=== PATIENT | female | born 1980 | race Native Hawaiian/Other Pacific Islander ===

== ENCOUNTER 2020-05-04 11:11 | Inpatient (IN) | payer OTHER ==
[2020-05-04] MEDS ORDERED: MINERAL OIL 30 ML ORAL LIQD PO PRN (19:01)
[2020-05-04] MEDS ORDERED: fentaNYL 100 MCG/2 ML INJ IV PRN (19:01)
[2020-05-04] MEDS ORDERED: ePHEDrine SULFATE 50 MG/1 ML INJ IV PRN (19:01)
[2020-05-04] MEDS ORDERED: TERBUTALINE 1 MG/1 ML INJ SUB-Q PRN (19:01)
[2020-05-04] MEDS ORDERED: AMPICILLIN/NS 2 GM/100 ML 2 GM/100 ML BAG IV ONE (19:14)
[2020-05-04] MEDS: LACTATED RINGERS 1,000 ML IV SCH (19:25)
[2020-05-04 19:48] LABS: Basophils # (Auto) 0.1 K/mm3 (0.0-0.1); Basophils % (Auto) 0.4 % (0.0-1.8); Eosinophils % (Auto) 0.2 % (0.0-4.3); Hematocrit 38.1 % (30.3-42.9); Hemoglobin 12.5 gm/dl (10.1-14.3); Lymphocytes # (Auto) 1.6 K/mm3 (1.2-5.4); Lymphocytes % (Auto) 9.3 % (13.4-35.0); Mean Corpuscular HGB Conc 33 % (30-34); Mean Corpuscular Volume 90 fl (79-97); Monocytes % (Auto) 5.9 % (0.0-7.3); Platelet Count 327 K/mm3 (140-440); Red Blood Count 4.26 M/mm3 (3.65-5.03); Red Cell Distribution Width 14.3 % (13.2-15.2)
[2020-05-04] MEDS ORDERED: OXYTOCIN DRIP 30 UNITS/500 ML BAG IV SCH ×2 (20:00→23:30)
[2020-05-04] MEDS ORDERED: LIDOCAINE (2%) 20 MG/1 ML VIAL 20 ML MDV INFILTRATI ONE (20:01)
[2020-05-04 22:53] LABS: Bilirubin,Urine NEG (Negative); Blood,Urine LG (Negative); Color,Urine Yellow (Yellow); Mucus,Urine 1+ /HPF; Urobilinogen,Urine < 2.0 mg/dL (<2.0)
[2020-05-04] MEDS ORDERED: AMPICILLIN/NS 1 GM/50 ML 1 GM/50 ML BAG IV SCH (23:00)
--- NOTE | 2020-05-04 23:45 | Ultrasound Report ---
Limited obstetrical ultrasound INDICATION: Term , amniotic fluid assessment COMPARISON: None FINDINGS: Intrauterine is seen in a cephalic position. cardiac activity was documente d at 157 bpm. Amniotic fluid appears rather limited and TIN is decreased at 3.8 cm. BIOPHYSICAL PROFILE breathing movements: 2/2 movements: 2/2 posture and tone tone: 2/2 Qualitative amniotic fluid volume: 2/2 Total score: 8/8, within normal limits Signer Name: Hussein Wilson MD Signed: 05/04/2020 11:41 PM Workstation Name: [id number]
[2020-05-04] MEDS: BUTORPHANOL 2 MG/1 ML INJ IV PRN (23:46)
[2020-05-05] MEDS ORDERED: AMPICILLIN/NS 2 GM/100 ML 2 GM/100 ML BAG IV SCH (01:30)
[2020-05-05] MEDS: BUTORPHANOL 2 MG/1 ML INJ IV PRN (01:56)
[2020-05-05] MEDS: LACTATED RINGERS 1,000 ML IV SCH (03:39)
--- NOTE | 2020-05-05 04:56 | History and Physical Report ---
History of Present Illness Date of examination: 05/05/20 Date of admission: 05/05/2020 Chief complaint: 39 wks gestation History of present illness: 40yo, G1 @ 39.1 wks, initiated care with [facility] at 15 wks gestation. Her has been complicated by AMA; fibroids and PACs (resolved 01/26/20). She presents to [facility] with reports of irregular painful ctxs for a couple of hours. She reports +FM. Denies VB. Does report "leaking" unsure of when it started. Labs: O+, antibody negative; PAP smear negative; rubella immune; RPR negative urine culture negative; HBsAg negative; HIV negative; GC/Chlamydia negative; MSAFP/Multiple markers negative; 1 hr gtt - 145; 3 hr gtt - 79, 135, 117, 126; GBS positive. Past History Past Medical History: other (Uterine fibroids) Past Surgical History: no surgical history Family/Genetic History: diabetes (Father) Social history: full code. denies: smoking, alcohol abuse, prescription drug abuse, IV drug use - Obstetrical History Expected Date of Delivery: 05/11/20 Actual Gestation: 39 Week(s) 1 Day(s) : 1 Para: 0 Hx # Term Pregnancies: 0 Number of Pregnancies: 0 Spontaneous Abortions: 0 Induced : 0 Number of Living Children: 0 Medications and Allergies Allergies Allergy/AdvReac Type Severity Reaction Status Date / Time No Known Allergies Allergy Verified 05/04/20 11:28 Home Medications Medication Instructions Recorded Confirmed Last Taken Type Vit-Fe Fumar-FA [ 1 tab PO DAILY 05/04/20 05/04/20 05/03/20 History Vitamin] Active Meds: Active Medications Butorphanol Tartrate (Butorphanol 2 Mg/1 Ml Inj) 2 mg IV Q2H PRN PRN Reason: Pain , Severe (7-10) Last Admin: 05/05/20 01:56 Dose: 2 mg Documented by: Ephedrine Sulfate (Ephedrine Sulfate 50 Mg/1 Ml Inj) 10 mg IV Q2M PRN PRN Reason: Hypotension Fentanyl (Fentanyl 100 Mcg/2 Ml Inj) 100 mcg IV Q2H PRN PRN Reason: Pain,Severe (7-10) LABOR PAIN Last Admin: 05/04/20 19:37 Dose: 100 mcg Documented by: Lactated Ringer's (Lactated Ringers) 1,000 mls @ 125 mls/hr IV DIRECT NORBERT Last Admin: 05/05/20 03:39 Dose: 125 mls/hr Documented by: Oxytocin/Sodium Chloride (Pitocin/Ns 30 Unit/500ml) 30 units in 500 mls @ 40 mls/hr IV TITR NORBERT; Protocol Ampicillin Sodium (Ampicillin/Ns 2 Gm/100 Ml) 2 gm in 100 mls @ 100 mls/hr IV Q6H NORBERT; Protocol Stop: 05/06/20 20:29 Last Admin: 05/05/20 01:25 Dose: 100 mls/hr Documented by: Clindamycin HCl (Cleocin 900 Mg/50 Ml) 900 mg in 50 mls @ 100 mls/hr IV Q8H NORBERT; Protocol Last Admin: 05/04/20 23:54 Dose: 100 mls/hr Documented by: Gentamicin Sulfate/Sodium Chloride (Gentamicin/Ns 80 Mg/100 Ml) 100 mls @ 200 mls/hr IV Q8HR NORBERT; Protocol Oxytocin/Sodium Chloride (Pitocin/Ns 30 Unit/500ml) 30 units in 500 mls @ 1 mls/hr IV TITR NORBERT; Protocol Last Titration: 05/05/20 04:43 Dose: 8 mls/hr, 8 mls/hr Documented by: Mineral Oil (Mineral Oil 30 Ml Oral Liqd) 30 ml PO QHS PRN PRN Reason: Constipation Terbutaline Sulfate (Terbutaline 1 Mg/1 Ml Inj) 0.25 mg SUB-Q ONCE PRN PRN Reason: Hyperstimulation/Hypertonicity Review of Systems All systems: negative Genitourinary: leakage of fluid, contractions - Vital Signs Vital signs: Vital Signs Pulse Pulse Ox 95 H 98 05/04/20 11:25 05/04/20 11:25 Temp Pulse Resp BP Pulse Ox 98.8 F 111 H 18 110/63 97 05/05/20 04:43 05/05/20 04:42 05/04/20 19:13 05/05/20 03:32 05/05/20 04:42 - Physical Exam Breasts: Positive: normal Cardiovascular: Regular rate Lungs: Positive: Normal air movement Abdomen: Positive: other (gravid) Vagina: Positive: discharge (yellow vaginal d/c) Uterus: Positive: enlarged (S=D) Deep Tendon Reflex Grade: Normal +2 - Obstetrical FHR: category 1 (with early decelerations) Uterine Contraction Monitor Mode: External Cervical Dilatation: 7 (vertex) Cervical Effacement Percentage: 80 (Pitocin @ 8 mu/min) station: 0 Uterine Contraction Frequency (min): 2-4 Uterine Contraction Pattern: Irregular Uterine Contraction Intensity: Strong/Firm Results Result Diagrams: 05/04/20 18:35 Abnormal lab results 05/04/20 05/04/20 Range/Units 18:35 21:40 WBC 17.2 H (4.5-11.0) K/mm3 Lymph % (Auto) 9.3 L (13.4-35.0) % Door # (Auto) 1.0 H (0.0-0.8) K/mm3 Seg Neutrophils % 84.2 H (40.0-70.0) % Seg Neutrophils # 14.5 H (1.8-7.7) K/mm3 Urine WBC (Auto) 26.0 H (0.0-6.0) /HPF All other labs normal. Assessment and Plan - Patient Problems (1) 39 weeks gestation of Current Visit: Yes Status: Acute Plan to address problem: Admit to L & D Pitocin titration as tolerated Pain meds as desired Anticipate (2) Oligohydramnios Current Visit: Yes Status: Acute Qualifiers: Fetus number: single or unspecified fetus Trimester: third trimester Qualified Code(s): O41.03X0 - Oligohydramnios, third trimester, not applicable or unspecified (3) Advanced maternal age (AMA) in Current Visit: Yes Status: Acute (4) Leukocytosis, unspecified Current Visit: Yes Status: Acute Qualifiers: Leukocytosis type: unspecified Qualified Code(s): D72.829 - Elevated white blood cell count, unspecified Plan to address problem: ABT initiated (5) Positive GBS test Current Visit: Yes Status: Acute Plan to address problem: Initiate GBS protocol
[2020-05-05] MEDS ORDERED: GENTAMICIN/NS 80 MG/100 ML 100 ML IV SCH (06:00)
[2020-05-05] MEDS ORDERED: LIDOCAINE (2%) 20 MG/1 ML VIAL 20 ML MDV INFILTRATI ONE (08:04)
--- NOTE | 2020-05-05 08:42 | Procedure Note ---
OB Delivery Note - Delivery Date of Delivery: 05/05/20 (0800) Surgeon: ROBERTO LEYVA (CNM) Estimated blood loss: other (400cc) - Vaginal Delivery presentation: vertex Delivery position: OA (MANNIE) Intrapartum events: meconium (term) Delivery induction: none Delivery augmentation: rupture of membranes (SROM, time unknown), pitocin Delivery monitor: external FHT, external uterine Route of delivery: Delivery placenta: spontaneous (0815, langley, meconium-stained, sent to lab) Delivery cord: 3 umbilical vessels Episiotomy: none Delivery laceration: 2nd degree (perineal) Delivery repair: vicryl (3.0 - CT) Anesthesia: local Delivery comments: of viable, quiet, floppy male , placed directly to maternal abdomen. Nurse manually dried and stimulated infant while cord double clamped and cut and infant handed over to awaiting NICU team for evaluation. Cord blood collected and sent to lab. Placenta spontaneously delivered, langley. Uterus firm @ U-2, hemostasis maintained. Perineum with 2nd degree laceration, repaired. Mother safe, stable and left in care of RN. Infant transported to nursery with by NICU team. - Infant A at 1 minute: 7 at 5 minutes: 8 Infant Gender: Male (Weight: 3946gms (8lbs 11ozs) 21.5 inches)
[2020-05-05] MEDS ORDERED: oxyCODONE /ACETAMINOPHEN 5-325MG TAB PO PRN (09:00)
[2020-05-05] MEDS ORDERED: PROMETHAZINE 25 MG TAB PO PRN (09:00)
[2020-05-05] MEDS ORDERED: diphenhydrAMINE 25 MG CAP PO PRN (09:00)
[2020-05-05] MEDS ORDERED: ONDANSETRON 4 MG/2 ML INJ IV PRN (09:00)
[2020-05-05] MEDS ORDERED: WITCH HAZEL/ GLYCERIN PAD TP PRN (09:00)
[2020-05-05] MEDS: PRENATAL VIT27-FE FUMARATE-FOLIC ACID VIT TAB PO SCH (09:00)
[2020-05-05] MEDS ORDERED: MAGNESIUM HYDROXIDE (MOM) ORAL LIQD UDC PO PRN (09:00)
[2020-05-05] MEDS ORDERED: LANOLIN/ZINC/DIMETHICONE (LANSINOH) 7 GM TP PRN (09:00)
[2020-05-05] MEDS: IBUPROFEN 600 MG TAB PO SCH ×2 (10:20→17:45)
[2020-05-05] MEDS ORDERED: BENZOCAINE/MENTHOL 20/0.5% TOP SPRAY 56 GM TP PRN (15:00)
[2020-05-05 20:19] LABS: Hematocrit 27.1 % (30.3-42.9)
[2020-05-06] MEDS: IBUPROFEN 600 MG TAB PO SCH ×3 (00:32→16:42)
--- NOTE | 2020-05-06 09:42 | Progress Note ---
Assessment and Plan PP DAY # 1 A: S/P Asymptomatic anemia p: Continue routine pp care Ferrous Sulfate prescribed D/C home tomm if stable Subjective - Subjective Date of service: 05/06/20 Principal diagnosis: s/p Patient reports: appetite normal, voiding normally, pain well controlled, ambulating normally : doing well, bottle feeding Objective - Vital Signs Latest vital signs: Vital Signs Temp Pulse Resp BP BP Pulse Ox 05/06/20 07:33 97.3 F L 74 20 106/63 99 05/05/20 23:54 98.0 F 78 16 97/54 98 05/05/20 21:34 98.4 F 76 18 97/65 97 05/05/20 17:07 97.8 F 87 18 106/57 97 05/05/20 10:25 98.8 F 95 H 18 114/69 100 Intake and Output 05/05/20 05/06/20 05/06/20 22:59 06:59 14:59 Intake Total 240 120 Output Total 1000 450 Balance -760 -330 Intake: Intake, Free Water 240 120 Output: Urine 1000 450 Void 1000 450 Other: Total, Output Amount 600 450 # Voids Void 1 1 - Exam Breasts: Present: normal Abdomen: Present: normal appearance, soft, normal bowel sounds Vulva: both: normal Uterus: Present: normal, firm, fundal height below umbilicus Extremities: Present: normal Incision: Present: normal, intact - Labs Labs: Abnormal lab results 05/05/20 Range/Units 19:52 Hgb 9.0 L D (10.1-14.3) gm/dl Hct 27.1 L D (30.3-42.9) %
[2020-05-06] MEDS ORDERED: PRENATAL VIT27-FE FUMARATE-FOLIC ACID VIT TAB PO SCH (10:00)
[2020-05-06] MEDS: PRENATAL VIT27-FE FUMARATE-FOLIC ACID VIT TAB PO SCH (16:42)
[2020-05-06] MEDS: FERROUS SULFATE 325 MG TAB PO SCH (16:42)
--- NOTE | 2020-05-06 20:50 | Discharge Summary ---
Providers - Providers Date of Admission: 05/05/20 04:42 Date of discharge: 05/07/20 Attending physician: CELESTINO MARTIN JR, MD 05/05/20 08:35 Consult to Processor Inspector [CONS] Routine Reason For Exam: assistance with , SNS Primary care physician: CELESTINO MARTIN JR, MD Hospitalization Reason for admission: active labor Delivery: Episiotomy: none Laceration: 2nd degree Incision: normal, intact Other procedures: none complications: none Discharge diagnosis: IUP at term delivered [place] baby: male Hospital course: Admitted to [facility] in labor and had a w/o complications. See H&P, delivery summary, and pp notes. Condition at discharge: Stable Disposition: - TO HOME OR SELFCARE Plan - Discharge Medications Prescriptions: Ibuprofen [Motrin 600 MG tab] 600 mg PO Q6H #30 tablet - Provider Discharge Summary Activity: routine, no sex for 6 weeks, no heavy lifting 4 weeks, no strenuous exercise Diet: routine Instructions: routine Additional instructions: [] Smoking cessation referral if applicable(refer to patient education folder for contact #) [] Refer to [facility] Booklet Call your doctor immediately for: * Fever > 100.5 * Heavy vaginal bleeding ( >1 pad per hour) * Severe persistent headache * Shortness of breath * Reddened, hot, painful area to leg or breast * Drainage or odor from incision. * Keep incision clean and dry at all times and follow doctor's instructions regarding bathing/showering - Follow up plan Follow up: CELESTINO MARTIN JR, MD [Primary Care Provider] - 6 Weeks
[2020-05-07] MEDS: IBUPROFEN 600 MG TAB PO SCH ×3 (00:40→17:45)
[2020-05-07] MEDS: FERROUS SULFATE 325 MG TAB PO SCH ×2 (00:41→17:44)
[2020-05-07 16:03] VITALS: BP 105/62
[2020-05-07] MEDS: PRENATAL VIT27-FE FUMARATE-FOLIC ACID VIT TAB PO SCH (17:44)
== END 2020-05-07 17:49 | disposition home or self-care (01) | DRG 775 ==
LOC: TRG 11:11 → APU 11:17 → LD 19:19 → TRG 05-05 04:42 → OB 05-05 09:52
PROVIDERS: ADMIT Obstetrics & Gynecology; ATTEND Obstetrics & Gynecology
PROC: 10E0XZZ Delivery of Products of Conception, External Approach (ICD-10-PCS; principal; 2020-05-06)
PROC: 0KQM0ZZ Repair Perineum Muscle, Open Approach (ICD-10-PCS; 2020-05-06)
PROC: 10E0XZZ Delivery of Products of Conception, External Approach (ICD-10-PCS; 2020-05-06)
DX: O41.03X0 Oligohydramnios, third trimester, not applicable or unspecified (principal); Z3A.39 39 weeks gestation of pregnancy; O99.02 Anemia complicating childbirth; D64.9 Anemia, unspecified; Z37.0 Single live birth; Z20.822 Contact with and (suspected) exposure to COVID-19; O77.0 Labor and delivery complicated by meconium in amniotic fluid; O70.1 Second degree perineal laceration during delivery
CPT/HCPCS: 36415; 76815; 76819; 81001; 84112; 85014; 85018; 85025; 86592; 86850; 86900; 86901; 87086; G0378; J0290; J0595; J2590; J3010; J7120; U0003